=== PATIENT | male | born 1995 | race Caucasian/White ===

== ENCOUNTER 2023-12-26 14:38 | Emergency (ER) | payer BC, SELFPAY ==
[2023-12-26 14:40] VITALS: BP 150/95; PULSE 84; RESP 18; TEMP 37.1; O2SAT 100
--- NOTE | 2023-12-26 14:55 | ED.GENADULT ---
HPI - General Adult General Chief complaint: Unspecified Stated complaint: HAD FEVER, NEEDS WORK NOTE TO GO BACK Time Seen by Provider: 12/26/23 14:44 History of Present Illness HPI narrative: Patient presenting with viral syndrome, he had some nausea and diarrhea and vomiting 2 days ago, had a fever yesterday but today woke up and was feeling much better. He would like to go back to work tomorrow, is here for work note. Related Data Allergies Allergy/AdvReac Type Severity Reaction Status Date / Time No Known Allergies Allergy Unverified 09/06/16 00:09 Review of Systems Review of Systems: CONST: Fever now resolved HEENT: No sore throat C/V: No chest pain RESP: No cough GI: Reports abdominal pain, nausea, vomiting now resolved : No dysuria. M/S: No joint pain. SKIN: No rash. NEURO: [No headache or focal numbness or weakness] PSYCH: [No depression] Exam Narrative: EXAMINATION OF ORGAN SYSTEMS/BODY AREAS: Constitutional: Vital signs per nursing GENERAL:[No acute distress, non-toxic appearing.] HEAD: Normal with no signs of head trauma. EYES: EOMI, conjunctiva normal ENT: Hearing grossly intact LUNGS: Nonlabored breathing. HEART: [Regular rate and rhythm] ABD: [Soft], [nontender to palpation] EXT: Normal range of motion SKIN: [No rashes or lesions.] NEURO: [Alert and oriented x 3. No gross focal sensory or strength deficits.] PSYCH: Normal affect Course Vital Signs Vital signs: Vital Signs Temperature 98.7 F 12/26/23 14:40 Pulse Rate 84 12/26/23 14:40 Respiratory Rate 18 12/26/23 14:40 Blood Pressure 150/95 H 12/26/23 14:40 Pulse Oximetry 100 12/26/23 14:40 Oxygen Delivery Room Air 12/26/23 14:40 Temperature 98.7 F 12/26/23 14:40 Pulse Rate 84 12/26/23 14:40 Respiratory Rate 18 12/26/23 14:40 Blood Pressure 150/95 H 12/26/23 14:40 Pulse Oximetry 100 12/26/23 14:40 Oxygen Delivery Room Air 12/26/23 14:40 Medical Decision Making [facility] Narrative Medical decision making narrative: Patient presents with recent viral syndrome, he is feeling much better now, has been afebrile for the last 12 hours, he would like to go back to work tomorrow and I do feel this is reasonable. He is well-appearing here, her abdomen soft nontender, no respiratory distress, vitals within acceptable limits. I have asked him to follow up with his primary doctor and return to the ER for any further issues Vital Signs Vital Signs: Vital Signs Temperature 98.7 F 12/26/23 14:40 Pulse Rate 84 12/26/23 14:40 Respiratory Rate 18 12/26/23 14:40 Blood Pressure 150/95 H 12/26/23 14:40 Pulse Oximetry 100 12/26/23 14:40 Oxygen Delivery Room Air 12/26/23 14:40 Temperature 98.7 F 12/26/23 14:40 Pulse Rate 84 12/26/23 14:40 Respiratory Rate 18 12/26/23 14:40 Blood Pressure 150/95 H 12/26/23 14:40 Pulse Oximetry 100 12/26/23 14:40 Oxygen Delivery Room Air 12/26/23 14:40 Discharge Plan Discharge Clinical Impression: Acute viral syndrome Patient Disposition: Home, Self-Care Condition: Stable Instructions: Antibiotic Form, Viral Syndrome (ED) Additional Instructions: Please follow-up with your doctor, you can always return to the ER if you feel worse. Follow-up/Referrals: Andrews,Valente Saleh MD [Primary Care Provider] - Stand Alone Forms: Work/School Release IP
== END 2023-12-26 15:01 | disposition home or self-care (01) ==
PROVIDERS: Emergency Provider Emergency Medicine; PCP Internal Medicine
DX: B34.9 Viral infection, unspecified (principal); Z02.1 Encounter for pre-employment examination
CPT/HCPCS: 99281